=== PATIENT | male | born 1990 | race Caucasian/White ===

== ENCOUNTER 2017-10-05 15:00 | Emergency (ER) | payer BC ==
[2017-10-05 17:36] VITALS: BP 125/78
--- NOTE | 2017-10-05 17:55 | UC ---
HPI Febrile Illness - HPI Summary HPI Summary: C/O headache, frontal with body aches and fever. Cough. - History of Current Complaint Chief Complaint: UCGeneralIllness Time Seen by Provider: 10/05/17 17:47 Hx Obtained From: Patient Onset/Duration: Started Days Ago - 1, Worse Since - onset Timing: Constant Initial Severity: Mild Current Severity: Severe Aggravating Factors: Nothing Alleviating Factors: Nothing Associated Signs and Symptoms: Chills, Cough, Headache - frontal, Myalgia Related History: Recent Tick Bite - Risk Factors Serious Bacterial Infection Risk Factors: Negative - Allergy/Home Medications Allergies/Adverse Reactions: Allergies Allergy/AdvReac Type Severity Reaction Status Date / Time No Known Allergies Allergy Verified 10/05/17 17:36 Home Medications: Home Medications Injvvvocqyglk-Jpdurfprut-Exewm [Jennifer-[place] Plus Day/Nig] 1 maxi PO ONCE [History Confirmed 10/05/17] PMH/Surg Hx/FS Hx/Imm Hx Previously Healthy: Yes - Surgical History Surgical History: Yes Surgery Procedure, Year, and Place: LAZY EYE REPAIR - Family History Known Family History: Positive: Hypertension, Diabetes, Other Negative: Cardiac Disease - Social History Occupation: Employed Full-time Lives: With Family Alcohol Use: Occasionally Substance Use Type: None Smoking Status (MU): Former Smoker Type: Smokeless Tobacco Amount Used/How Often: 2 x per week Length of Time of Smoking/Using Tobacco: past year Have You Smoked in the Last Year: Yes Review of Systems Constitutional: Fever ENT: Sinus Congestion, Sinus Pain/Tenderness Respiratory: Cough Musculoskeletal: Myalgia Neurological: Headache Is Patient Immunocompromised?: No All Other Systems Reviewed And Are Negative: Yes Physical Exam Triage Information Reviewed: Yes Appearance: No Pain Distress, Well-Nourished, Ill-Appearing Vital Signs: Initial Vital Signs Temp 98 F 10/05/17 17:24 Pulse 99 10/05/17 17:24 Resp 16 10/05/17 17:24 BP 125/78 10/05/17 17:24 Pulse Ox 99 10/05/17 17:24 Vital Signs Reviewed: Yes Eyes: Positive: Conjunctiva Inflamed - OU ENT: Positive: Pharyngeal erythema - with posterior pharynx lymphoid hyperplasia , TMs normal Neck exam: Normal Respiratory Exam: Normal Cardiovascular Exam: Normal Musculoskeletal Exam: Normal Neurological Exam: Normal Psychological Exam: Normal Skin Exam: Normal Course/Dx - Febrile Illness Differential Diagnoses: Cellulitis, Pneumonia, Pyelonephritis, Sepsis - Diagnoses Clinic Provider Diagnoses: Acute URI Discharge - Discharge Plan Condition: Stable Disposition: HOME Patient Education Materials: Upper Respiratory Infection (ED) Forms: *Work Release Referrals: Sole Mac [Primary Care Provider] -
== END 2017-10-05 18:29 | disposition home or self-care (01) ==
LOC: UCCORT 15:00
DX: J06.9 Acute upper respiratory infection, unspecified (principal); Z87.891 Personal history of nicotine dependence
CPT/HCPCS: 86618; 87502; 99211; G0463

== ENCOUNTER 2018-02-23 18:34 | Emergency (ER) | payer BC ==
[2018-02-23 19:07] VITALS: BP 131/56
[2018-02-23] MEDS ORDERED: Ondansetron ODT TAB* 4 MG PO ONE (19:16)
--- NOTE | 2018-02-23 19:16 | UC ---
Abdominal Pain Male HPI - HPI Summary HPI Summary: Pt c/o sudden onset of nausea, vomiting and diarrhea that began today. - History of Current Complaint Chief Complaint: UCGI Stated Complaint: DIARRHEA,VOMITING Time Seen by Provider: 02/23/18 19:00 Hx Obtained From: Patient Onset/Duration: Sudden Onset, Lasting Hours, Still Present Timing: Constant Severity Initially: Moderate Severity Currently: Moderate Pain Intensity: 7 Location: Diffuse Radiates: No Character: Colicy, Dull Aggravating Factor(s): Food Alleviating Factor(s): Nothing Associated Signs And Symptoms: Positive: Nausea, Vomiting, Diarrhea - Risk Factors Testicular Torsion: Negative Cardiac Risk Factors: Negative - Allergies/Home Medications Allergies/Adverse Reactions: Allergies Allergy/AdvReac Type Severity Reaction Status Date / Time No Known Allergies Allergy Verified 02/23/18 18:57 PMH/Surg Hx/FS Hx/Imm Hx Previously Healthy: Yes - Surgical History Surgical History: Yes Surgery Procedure, Year, and Place: LAZY EYE REPAIR - Family History Known Family History: Positive: Unknown, Hypertension, Diabetes, Other Negative: Cardiac Disease - Social History Occupation: Employed Full-time Lives: With Family Alcohol Use: Occasionally Substance Use Type: None Smoking Status (MU): Former Smoker Type: Smokeless Tobacco Amount Used/How Often: 2 x per week Length of Time of Smoking/Using Tobacco: past year Have You Smoked in the Last Year: Yes Review of Systems Constitutional: Chills, Fatigue Skin: Negative Eyes: Negative ENT: Negative Respiratory: Negative Cardiovascular: Negative Gastrointestinal: Abdominal Pain, Vomiting, Diarrhea, Nausea Genitourinary: Negative Motor: Negative Neurovascular: Negative Musculoskeletal: Myalgia Neurological: Negative Psychological: Negative Is Patient Immunocompromised?: No All Other Systems Reviewed And Are Negative: Yes Physical Exam Triage Information Reviewed: Yes Appearance: Ill-Appearing Vital Signs: Initial Vital Signs Temp 98 F 02/23/18 18:59 Pulse 112 02/23/18 18:59 Resp 18 02/23/18 18:59 BP 131/56 02/23/18 18:59 Pulse Ox 98 02/23/18 18:59 Vital Signs Reviewed: Yes Eye Exam: Normal ENT Exam: Normal Dental Exam: Normal Neck exam: Normal Respiratory Exam: Normal Cardiovascular Exam: Normal Abdominal Exam: Other - generalized discomfort Bowel Sounds: Positive: Present Musculoskeletal Exam: Normal Neurological Exam: Normal Psychological Exam: Normal Skin Exam: Normal Abd Pain Male Course/Dx - Differential Dx/Clinical Impression Differential Diagnosis/HQI/PQRI: Other - gastroenteritis Provider Diagnoses: gastroenteritis Discharge - Sign-Out/Discharge Documenting (check all that apply): Discharge - Discharge Plan Condition: Stable Disposition: HOME Prescriptions: Ondansetron [Zofran Odt] 8 mg PO Q8H PRN #15 tab.rapdis PRN Reason: Nausea Patient Education Materials: Loperamide (By mouth), Gastroenteritis (ED) Referrals: Sole Mac [Primary Care Provider] - If Needed - Billing Disposition and Condition Condition: STABLE Disposition: HOME
== END 2018-02-23 19:49 | disposition home or self-care (01) ==
LOC: UCCORT 18:34
DX: K52.9 Noninfective gastroenteritis and colitis, unspecified (principal); Z87.891 Personal history of nicotine dependence
CPT/HCPCS: 99212; A9270-GY; G0463